=== PATIENT | male | born 1950 | race Hispanic/Latino ===

== ENCOUNTER 2021-08-08 08:08 | Day surgery (SDC) | payer MEDICARE ==
[2021-08-02 15:59] LABS: BASOPHILS % (AUTO) 0.8 % (0.0-5.0); EOSINOPHILS % (AUTO) 4.9 % (0.0-8.0); HEMATOCRIT 32.9 % (42-54); LYMPHOCYTES % (AUTO) 27.3 % (21.0-51.0); MEAN CORPUSCULAR HEMOGLOBIN 32.7 pg (27.0-33.0); MEAN CORPUSCULAR VOLUME 105.4 fL (79-99); MONOCYTES % (AUTO) 10.9 % (3.0-13.0); NEUTROPHILS % (AUTO) 55.8 % (40.0-77.0); PLATELET COUNT (AUTO) 74 K/uL (130-400); RED BLOOD CELL COUNT(AUTO) 3.12 MIL/uL (4.50-6.20); RED CELL DISTRIBUTION WIDTH 15.4 % (11.0-15.5); WHITE BLOOD COUNT (AUTO) 3.8 K/uL (4.8-10.8)
[2021-08-02 16:08] LABS: INR 1.13 (0.85-1.15); PROTHROMBIN TIME 12.2 SEC (9.6-11.6)
[2021-08-02 16:10] LABS: PARTIAL THROMBOPLASTIN TIME 31.3 SEC (26.3-35.5)
[2021-08-02 16:29] LABS: POTASSIUM 4.4 mmol/L (3.5-5.1)
[2021-08-02 16:36] LABS: CREATININE 8.2 mg/dL (0.5-1.5)
[2021-08-08] VITALS (7 sets, daily range): BP systolic 97–126; BP diastolic 37–70
[~2021-08-08] VITALS: Ht 167.6 cm; Wt 129.8 kg
[~2021-08-08 08:08] MED LIST: 0.9%NACL 1000ML 1,000 ML IV SCH
[2021-08-08] MEDS ORDERED: ALPR1TAB7 PO (09:00)
[2021-08-08] MEDS ORDERED: LUBI24CA2 PO (09:00)
[2021-08-08] MEDS ORDERED: GABA300C PO (09:00)
[2021-08-08] MEDS ORDERED: APIX5TAB PO (09:00)
[2021-08-08] MEDS ORDERED: LACT10SO62 PO (09:00)
[2021-08-08] MEDS ORDERED: TRAM50TA4 PO (09:00)
[2021-08-08] MEDS ORDERED: RIFA500P4 MC (09:00)
[2021-08-08] MEDS ORDERED: PRUC2TAB PO (09:00)
[2021-08-08] MEDS ORDERED: MIDO10TA PO (09:00)
[2021-08-08] MEDS ORDERED: POLY500P30 MC (09:00)
[2021-08-08] MEDS ORDERED: CEFAZOLIN SODIUM 1 GM VIAL ONE (10:05)
[2021-08-08] MEDS ORDERED: BUPIVACAINE/PF 0.25% 30ML VIAL IJ ONE (10:05)
[2021-08-08] MEDS ORDERED: MIDAZOLAM HCL 1 MG/ML 2ML VIAL ONE ×2 (10:06→10:55)
[2021-08-08] MEDS ORDERED: MEPERIDINE-PF 50 MG/ML SYG ONE (10:06)
[2021-08-08] MEDS ORDERED: LIDOCAINE HCL 1% MDV 50ML VIAL ONE (10:06)
[2021-08-08] MEDS ORDERED: CEFAZOLIN SODIUM 1 GM VIAL IVP SCH (17:00)
== END 2021-08-08 13:40 | disposition home or self-care (01) ==
LOC: DAH 08:08
PROVIDERS: ATTEND Internal Medicine Cardiovascular Disease
DX: I48.0 Paroxysmal atrial fibrillation (principal); I25.10 Atherosclerotic heart disease of native coronary artery without angina pectoris; I12.0 Hypertensive chronic kidney disease with stage 5 chronic kidney disease or end stage renal disease; E11.22 Type 2 diabetes mellitus with diabetic chronic kidney disease; N18.6 End stage renal disease; E78.5 Hyperlipidemia, unspecified; G47.33 Obstructive sleep apnea (adult) (pediatric); E03.9 Hypothyroidism, unspecified; Z79.01 Long term (current) use of anticoagulants; Z79.899 Other long term (current) drug therapy
CPT/HCPCS: 33227; 36415; 80048; 82948; 85025; 85610; 85730; 93005; A4215; A4216; A4221; A4222; A4223 ×3; A4606; A4663; C1786; J0690; J2175; J2250 ×2; J3490 ×2; J7030; 99156; 99157